=== PATIENT | female | born 1940 | race Caucasian/White ===

== ENCOUNTER → 2021-07-20 | Outpatient (CLI) | payer MEDICARE ==
[~2021-07-20] MED LIST: REGADENOSON 0.4 MG/5 ML PF SYRINGE IVP ONE; SESTAMIBI TC99M/UD ISOTOPE 1 EA INJ INJ ONE
[2021-07-20 11:52] VITALS: BP 122/76
[2021-07-20 11:59] VITALS: BP 136/82
== END | disposition home or self-care (01) ==
LOC: CARDMN 08:09
PROVIDERS: ATTEND Internal Medicine Cardiovascular Disease
DX: I51.7 Cardiomegaly (principal); I25.9 Chronic ischemic heart disease, unspecified; I50.1 Left ventricular failure, unspecified
CPT/HCPCS: 78452; 93017; 93306; A9500